=== PATIENT | female | born 1970 | race African-American/Black ===

== ENCOUNTER 2024-02-12 13:44 | Inpatient (IN) | payer OTHER ==
[2024-02-12 15:17] LABS: BASO % 0.5 % (0-2.0); EOS % 1.3 % (0-4.5); HEMATOCRIT 35.9 % (32.4-45.2); HEMOGLOBIN 11.6 GM/dL (10.7-15.3); MCH 26.6 pg (25.7-33.7); MCHC 32.3 g/dl (32.0-36.0); MEAN CELL VOLUME 82.2 fl (80-96); MEAN PLT VOLUME 8.5 fl (7.5-11.1); MONO % 6.3 % (3.8-10.2); NEUT % 61.9 % (42.8-82.8); PLATELET COUNT 203 10^3/uL (134-434); RBC 4.36 M/mm3 (3.60-5.2); RDW 14.5 % (11.6-15.6)
[2024-02-12 15:22] LABS: INR 1.07 (0.83-1.09); PROTHROMBIN TIME (PATIENT) 12.1 SEC (9.7-13.0)
[2024-02-12 15:24] LABS: ACTIVATED PTT 31.1 SECONDS (25.2-36.5)
[2024-02-12 15:38] LABS: POTASSIUM 4.5 mmol/L (3.5-5.1)
[2024-02-12 15:41] LABS: CALCIUM 9.8 mg/dL (8.5-10.1)
[2024-02-12 15:42] LABS: ALBUMIN 3.6 g/dl (3.4-5.0); BLOOD UREA NITROGEN 13.3 mg/dL (7-18); MAGNESIUM 1.9 mg/dL (1.8-2.4)
[2024-02-12 15:45] LABS: CREATININE 0.5 mg/dL (0.55-1.3)
[2024-02-12 15:46] LABS: BILIRUBIN,TOTAL 0.4 mg/dL (0.2-1); TOT PROT 7.5 g/dl (6.4-8.2)
[2024-02-12] MEDS: hydrALAZINE HCL 50 MG TABLET (FP) PO SCH (17:00)
[2024-02-12] MEDS: MUPIROCIN 2% TOPICAL OINTMENT FOR DECOLONIZATION NS SCH (21:01)
[2024-02-12] MEDS: FERROUS SO4 325 MG TABLET (FP) PO SCH (21:01)
[2024-02-12] MEDS: CHLORHEXIDINE GLUCONATE 4% CLEANSER FOR DECOLONIZATION TP SCH (21:01)
[2024-02-12] MEDS: ATORVASTATIN CA 80 MG TABLET (FP) PO SCH (21:01)
[2024-02-13 07:22] LABS: BASO % 0.6 % (0-2.0); EOS % 1.7 % (0-4.5); HEMATOCRIT 35.6 % (32.4-45.2); HEMOGLOBIN 11.5 GM/dL (10.7-15.3); MCH 26.6 pg (25.7-33.7); MCHC 32.2 g/dl (32.0-36.0); MEAN CELL VOLUME 82.5 fl (80-96); MEAN PLT VOLUME 8.6 fl (7.5-11.1); MONO % 7.4 % (3.8-10.2); NEUT % 47.3 % (42.8-82.8); PLATELET COUNT 197 10^3/uL (134-434); RBC 4.31 M/mm3 (3.60-5.2); RDW 14.9 % (11.6-15.6); WHITE BLOOD COUNT 4.9 K/mm3 (4.0-10.0)
[2024-02-13 07:43] LABS: POTASSIUM 4.1 mmol/L (3.5-5.1)
[2024-02-13 07:51] LABS: ALBUMIN 3.3 g/dl (3.4-5.0); BLOOD UREA NITROGEN 12.1 mg/dL (7-18); CALCIUM 9.5 mg/dL (8.5-10.1)
[2024-02-13 07:53] LABS: BILIRUBIN,TOTAL 0.6 mg/dL (0.2-1); TOT PROT 6.9 g/dl (6.4-8.2)
[2024-02-13 07:54] LABS: CREATININE 0.4 mg/dL (0.55-1.3); PHOSPHOROUS 3.9 mg/dL (2.5-4.9)
[2024-02-13] MEDS: DEXTROSE 5%-LACTATED RINGERS 1,000 ML IV SCH (08:55)
[2024-02-13] MEDS: LISINOPRIL 20 MG TABLET PO SCH (09:13)
[2024-02-13 09:31] LABS: INR 1.06 (0.83-1.09)
[2024-02-13 09:35] LABS: ACTIVATED PTT 34.8 SECONDS (25.2-36.5)
[2024-02-13] MEDS ORDERED: ACETAMINOPHEN 325 MG TABLET (FP) ONE (20:01)
[2024-02-13] MEDS: ACETAMINOPHEN 325 MG TABLET (FP) PO PRN (20:09)
[2024-02-14 06:28] LABS: BASO % 0.6 % (0-2.0); EOS % 2.4 % (0-4.5); HEMATOCRIT 36.6 % (32.4-45.2); HEMOGLOBIN 11.6 GM/dL (10.7-15.3); LYMPH % 43.7 % (8-40); MCH 26.6 pg (25.7-33.7); MCHC 31.8 g/dl (32.0-36.0); MEAN CELL VOLUME 83.6 fl (80-96); MEAN PLT VOLUME 8.5 fl (7.5-11.1); MONO % 9.4 % (3.8-10.2); NEUT % 43.9 % (42.8-82.8); PLATELET COUNT 182 10^3/uL (134-434); RBC 4.37 M/mm3 (3.60-5.2); RDW 14.9 % (11.6-15.6); WHITE BLOOD COUNT 4.9 K/mm3 (4.0-10.0)
[2024-02-14 06:43] LABS: INR 0.97 (0.83-1.09); PROTHROMBIN TIME (PATIENT) 11.2 SEC (9.7-13.0)
[2024-02-14 06:46] LABS: ACTIVATED PTT 33.2 SECONDS (25.2-36.5)
[2024-02-14 06:55] LABS: CALCIUM 9.4 mg/dL (8.5-10.1)
[2024-02-14 06:56] LABS: ALBUMIN 3.2 g/dl (3.4-5.0); BLOOD UREA NITROGEN 13.6 mg/dL (7-18)
[2024-02-14 06:59] LABS: CREATININE 0.5 mg/dL (0.55-1.3); PHOSPHOROUS 4.3 mg/dL (2.5-4.9)
[2024-02-14 07:01] LABS: BILIRUBIN,TOTAL 0.3 mg/dL (0.2-1); TOT PROT 6.9 g/dl (6.4-8.2)
[2024-02-15 07:41] LABS: HEMATOCRIT 35.2 % (32.4-45.2); HEMOGLOBIN 11.1 GM/dL (10.7-15.3); MCH 26.4 pg (25.7-33.7); MCHC 31.4 g/dl (32.0-36.0); MEAN CELL VOLUME 84.2 fl (80-96); MEAN PLT VOLUME 8.6 fl (7.5-11.1); PLATELET COUNT 181 10^3/uL (134-434); RBC 4.18 M/mm3 (3.60-5.2); RDW 14.6 % (11.6-15.6); WHITE BLOOD COUNT 4.3 K/mm3 (4.0-10.0)
[2024-02-15 08:08] LABS: ALBUMIN 3.3 g/dl (3.4-5.0); BLOOD UREA NITROGEN 13.1 mg/dL (7-18); CALCIUM 9.5 mg/dL (8.5-10.1); MAGNESIUM 1.8 mg/dL (1.8-2.4)
[2024-02-15 08:11] LABS: CREATININE 0.5 mg/dL (0.55-1.3); PHOSPHOROUS 3.4 mg/dL (2.5-4.9)
[2024-02-15 08:12] LABS: BILIRUBIN,TOTAL 0.3 mg/dL (0.2-1)
[2024-02-15] MEDS: CHLORHEXIDINE GLUCONATE 4% CLEANSER FOR DECOLONIZATION TP SCH (21:42)
[2024-02-16] MEDS: PANTOPRAZOLE 40 MG TABLET PO SCH (06:07)
[2024-02-16] MEDS ORDERED: THROMBIN (BOVINE) 5,000 UNIT VIAL TP ONE (07:14)
[2024-02-16] MEDS ORDERED: PROPOFOL 20 ML ONE (07:15)
[2024-02-16] MEDS ORDERED: BUPIVACAINE HCL/PF 0.5% (5MG/ML) 10 ML VIAL ONE (07:15)
[2024-02-16] MEDS ORDERED: MIDAZOLAM HCL 2 MG/2 ML SINGLE DOSE VIAL ONE (07:15)
[2024-02-16] MEDS ORDERED: ROCURONIUM BROMIDE 50 MG/5 ML SYRINGE ONE ×3 (07:15→11:09)
[2024-02-16] MEDS ORDERED: GENTAMICIN SO4 80 MG/2 ML VIAL ONE (07:17)
[2024-02-16] MEDS ORDERED: LIDOCAINE 1%/EPI 1:100000 (20 ML MULTI DOSE VIAL) ONE (07:25)
[2024-02-16] MEDS ORDERED: BACITRACIN ZINC 15 GM TUBE TOPICAL OINTMENT ONE (07:32)
[2024-02-16 07:44] LABS: BASO % 0.3 % (0-2.0); EOS % 2.6 % (0-4.5); HEMOGLOBIN 10.5 GM/dL (10.7-15.3); LYMPH % 50.5 % (8-40); MCH 26.7 pg (25.7-33.7); MCHC 31.9 g/dl (32.0-36.0); MEAN CELL VOLUME 83.8 fl (80-96); MEAN PLT VOLUME 8.6 fl (7.5-11.1); MONO % 8.5 % (3.8-10.2); NEUT % 38.1 % (42.8-82.8); PLATELET COUNT 174 10^3/uL (134-434); RBC 3.94 M/mm3 (3.60-5.2); RDW 14.5 % (11.6-15.6); WHITE BLOOD COUNT 4.3 K/mm3 (4.0-10.0)
[2024-02-16] MEDS: ceFAZolin SODIUM 1 GM VIAL IVPB ONE ×2 (07:59→09:10)
[2024-02-16] MEDS: VANCOMYCIN 1 GM in NS (PRE-DOCKED) 1,000 MG/250 ML (RESTRICTED TO ID ONLY) IVPB ONE ×2 (07:59→09:20)
[2024-02-16] MEDS: LIDOCAINE 1%/EPI 1:100000 (20 ML MULTI DOSE VIAL) IJ ONE ×2 (07:59→09:29)
[2024-02-16] MEDS ORDERED: ETOMIDATE 20 MG/10 ML VIAL IVPUSH ONE (08:03)
[2024-02-16 08:06] LABS: POTASSIUM 4.3 mmol/L (3.5-5.1)
[2024-02-16 08:14] LABS: ALBUMIN 3.1 g/dl (3.4-5.0); BLOOD UREA NITROGEN 17.2 mg/dL (7-18); CALCIUM 9.3 mg/dL (8.5-10.1)
[2024-02-16 08:17] LABS: CREATININE 0.4 mg/dL (0.55-1.3)
[2024-02-16 08:18] LABS: BILIRUBIN,TOTAL 0.4 mg/dL (0.2-1); TOT PROT 6.4 g/dl (6.4-8.2)
[2024-02-16] MEDS ORDERED: SEVOFLURANE 250 ML BTL ONE (09:48)
[2024-02-16] MEDS: THROMBIN (BOVINE) 5,000 UNIT VIAL TP ONE (10:18)
[2024-02-16] MEDS: GENTAMICIN SO4 80 MG/2 ML VIAL IVPB ONE (10:19)
[2024-02-16] MEDS: HYDROGEN PEROXIDE 473 ML PO ONE (10:20)
[2024-02-16] MEDS ORDERED: FUROSEMIDE 40 MG/4 ML INJECTABLE VIAL ONE ×2 (10:36)
[2024-02-16] MEDS ORDERED: SODIUM CHLORIDE 3% 500 ML/500 ML INFUS.BAG IV ONE (10:47)
[2024-02-16] MEDS: FUROSEMIDE 40 MG/4 ML INJECTABLE VIAL IVPUSH ONE ×2 (10:54)
[2024-02-16] MEDS: MANNITOL 25% 12.5 GM/50 ML VIAL IVPB ONE ×3 (10:54→11:12)
[2024-02-16] MEDS ORDERED: SUGAMMADEX SODIUM 200 MG/2 ML VIAL ONE (12:15)
[2024-02-16] MEDS ORDERED: LIDOCAINE HCL 2% 100 MG/5 ML DISP.SYRIN ONE (12:16)
[2024-02-16] MEDS ORDERED: CODEINE SO4 30 MG TABLET PO PRN (12:19)
[2024-02-16] MEDS ORDERED: ONDANSETRON 4 MG/2 ML VIAL IVPUSH PRN (12:19)
[2024-02-16] MEDS ORDERED: D5-NS + 20 MEQ KCL - 20 MEQ/1,000 ML INFUS.BAG IV SCH (12:30)
[2024-02-16] MEDS: DEXAMETHASONE SOD PHOSPHATE 4 MG/1 ML VIAL IVPUSH SCH (15:44)
[2024-02-16] MEDS: DOCUSATE SODIUM 100 MG CAPSULE (FP) PO SCH (17:02)
[2024-02-16] MEDS: CEFAZOLIN 1 GM in DEXTROSE 5%-WATER - 50 ML IVPB SCH (17:02)
[2024-02-16 17:24] LABS: HEMATOCRIT 31.8 % (32.4-45.2); HEMOGLOBIN 10.2 GM/dL (10.7-15.3); MCH 26.6 pg (25.7-33.7); MCHC 32.1 g/dl (32.0-36.0); MEAN CELL VOLUME 82.8 fl (80-96); MEAN PLT VOLUME 8.8 fl (7.5-11.1); PLATELET COUNT 187 10^3/uL (134-434); RBC 3.84 M/mm3 (3.60-5.2); WHITE BLOOD COUNT 9.2 K/mm3 (4.0-10.0)
[2024-02-16 17:38] LABS: POTASSIUM 4.2 mmol/L (3.5-5.1)
[2024-02-16 17:41] LABS: BLOOD UREA NITROGEN 15.4 mg/dL (7-18)
[2024-02-16 17:45] LABS: CREATININE 0.7 mg/dL (0.55-1.3)
[2024-02-16] MEDS ORDERED: FOSPHENYTOIN SODIUM 100 MG/2 ML VIAL IVPB SCH (18:00)
[2024-02-16] MEDS: SODIUM CHLORIDE IVPB SCH (18:19)
[2024-02-16] MEDS: FOSPHENYTOIN SODIUM IVPB SCH (18:19)
[2024-02-16] MEDS: SODIUM CHLORIDE 3% 500 ML/500 ML INFUS.BAG IV ONE (18:22)
[2024-02-16] MEDS: ACETAMINOPHEN 1000 MG/100 ML BAG IVPB ONE (20:36)
[2024-02-17] MEDS: morphine CARPU-JECT 2 MG/1 ML DISP.SYRIN IVPUSH ONE (03:39)
[2024-02-17 06:53] LABS: HEMATOCRIT 28.4 % (32.4-45.2); MCH 26.5 pg (25.7-33.7); MCHC 31.8 g/dl (32.0-36.0); MEAN CELL VOLUME 83.5 fl (80-96); MEAN PLT VOLUME 8.5 fl (7.5-11.1); PLATELET COUNT 166 10^3/uL (134-434); RDW 14.8 % (11.6-15.6); WHITE BLOOD COUNT 12.4 K/mm3 (4.0-10.0)
[2024-02-17 07:13] LABS: POTASSIUM 3.7 mmol/L (3.5-5.1)
[2024-02-17 07:15] LABS: BLOOD UREA NITROGEN 13.4 mg/dL (7-18); CALCIUM 8.9 mg/dL (8.5-10.1)
[2024-02-17 07:19] LABS: CREATININE 0.4 mg/dL (0.55-1.3)
[2024-02-17] MEDS: PANTOPRAZOLE SODIUM 40 MG VIAL IVPUSH SCH (09:00)
[2024-02-17] MEDS: ACETAMINOPHEN WITH CODEINE 300MG/30MG TABLET PO PRN (21:06)
[2024-02-18 07:53] LABS: POTASSIUM 3.9 mmol/L (3.5-5.1)
[2024-02-18 07:55] LABS: CALCIUM 8.4 mg/dL (8.5-10.1)
[2024-02-18 07:56] LABS: ALBUMIN 2.7 g/dl (3.4-5.0); BLOOD UREA NITROGEN 15.2 mg/dL (7-18); MAGNESIUM 1.8 mg/dL (1.8-2.4)
[2024-02-18 07:58] LABS: CREATININE 0.4 mg/dL (0.55-1.3)
[2024-02-18 07:59] LABS: PHOSPHOROUS 2.1 mg/dL (2.5-4.9)
[2024-02-18 08:00] LABS: BILIRUBIN,TOTAL 0.2 mg/dL (0.2-1); TOT PROT 5.9 g/dl (6.4-8.2)
[2024-02-18 08:20] LABS: BASO % 0.1 % (0-2.0); HEMATOCRIT 25.9 % (32.4-45.2); HEMOGLOBIN 8.4 GM/dL (10.7-15.3); LYMPH % 12.8 % (8-40); MCH 26.7 pg (25.7-33.7); MCHC 32.4 g/dl (32.0-36.0); MEAN CELL VOLUME 82.3 fl (80-96); MEAN PLT VOLUME 9.2 fl (7.5-11.1); MONO % 5.8 % (3.8-10.2); NEUT % 81.3 % (42.8-82.8); PLATELET COUNT 145 10^3/uL (134-434); RBC 3.14 M/mm3 (3.60-5.2); RDW 14.6 % (11.6-15.6); WHITE BLOOD COUNT 10.1 K/mm3 (4.0-10.0)
[2024-02-18] MEDS: NAPH,MB-DB/K PH,MBDB POWDER PACKET PO SCH (10:30)
[2024-02-18 14:27] VITALS: BMI 29.5
[2024-02-19 07:07] LABS: BASO % 0.4 % (0-2.0); HEMATOCRIT 27.6 % (32.4-45.2); HEMOGLOBIN 8.9 GM/dL (10.7-15.3); LYMPH % 18.4 % (8-40); MCH 26.9 pg (25.7-33.7); MCHC 32.3 g/dl (32.0-36.0); MEAN CELL VOLUME 83.3 fl (80-96); MEAN PLT VOLUME 9.4 fl (7.5-11.1); MONO % 5.4 % (3.8-10.2); NEUT % 75.8 % (42.8-82.8); PLATELET COUNT 154 10^3/uL (134-434); RBC 3.31 M/mm3 (3.60-5.2); RDW 14.7 % (11.6-15.6); WHITE BLOOD COUNT 8.7 K/mm3 (4.0-10.0)
[2024-02-19 07:14] LABS: POTASSIUM 4.2 mmol/L (3.5-5.1)
[2024-02-19 07:16] LABS: BLOOD UREA NITROGEN 14.1 mg/dL (7-18)
[2024-02-19 07:17] LABS: ALBUMIN 2.6 g/dl (3.4-5.0); CALCIUM 8.5 mg/dL (8.5-10.1); MAGNESIUM 1.9 mg/dL (1.8-2.4)
[2024-02-19 07:20] LABS: CREATININE 0.4 mg/dL (0.55-1.3); PHOSPHOROUS 1.9 mg/dL (2.5-4.9)
[2024-02-19 07:22] LABS: BILIRUBIN,TOTAL 0.2 mg/dL (0.2-1)
[2024-02-19] MEDS ORDERED: ONDANSETRON 4 MG/2 ML VIAL IVPUSH PRN (15:07)
[2024-02-19] MEDS ORDERED: CODEINE SO4 30 MG TABLET PO PRN (15:07)
[2024-02-19] MEDS ORDERED: ACETAMINOPHEN WITH CODEINE 300MG/30MG TABLET PO PRN (15:07)
[2024-02-19] MEDS ORDERED: ACETAMINOPHEN 325 MG TABLET (FP) PO PRN (15:07)
[2024-02-19] MEDS ORDERED: SODIUM CHLORIDE 3% 500 ML/500 ML INFUS.BAG IV ONE (15:07)
[2024-02-19] MEDS: SODIUM CHLORIDE IVPB SCH (17:58)
[2024-02-19] MEDS: FOSPHENYTOIN SODIUM IVPB SCH (17:58)
[2024-02-19] MEDS: ATORVASTATIN CA 80 MG TABLET (FP) PO SCH (21:23)
[2024-02-19] MEDS: FERROUS SO4 325 MG TABLET (FP) PO SCH (21:23)
[2024-02-19] MEDS: DOCUSATE SODIUM 100 MG CAPSULE (FP) PO SCH (21:24)
[2024-02-20] MEDS: PANTOPRAZOLE SODIUM 40 MG VIAL IVPUSH SCH (11:17)
[2024-02-20] MEDS: LISINOPRIL 20 MG TABLET PO SCH (11:22)
[2024-02-21] MEDS: PANTOPRAZOLE 40 MG TABLET PO SCH (09:01)
[2024-02-21 10:12] LABS: HEMATOCRIT 29.5 % (32.4-45.2); HEMOGLOBIN 9.3 GM/dL (10.7-15.3); MCH 26.5 pg (25.7-33.7); MCHC 31.6 g/dl (32.0-36.0); MEAN CELL VOLUME 83.7 fl (80-96); MEAN PLT VOLUME 9.3 fl (7.5-11.1); PLATELET COUNT 186 10^3/uL (134-434); RBC 3.52 M/mm3 (3.60-5.2); WHITE BLOOD COUNT 7.3 K/mm3 (4.0-10.0)
[2024-02-21 10:36] LABS: POTASSIUM 3.6 mmol/L (3.5-5.1)
[2024-02-21 10:48] LABS: ALBUMIN 2.6 g/dl (3.4-5.0); BLOOD UREA NITROGEN 11.6 mg/dL (7-18); CALCIUM 8.9 mg/dL (8.5-10.1)
[2024-02-21 10:51] LABS: CREATININE 0.4 mg/dL (0.55-1.3)
[2024-02-21 10:52] LABS: PHOSPHOROUS 3.2 mg/dL (2.5-4.9)
[2024-02-21 10:53] LABS: BILIRUBIN,TOTAL 0.3 mg/dL (0.2-1); TOT PROT 5.8 g/dl (6.4-8.2)
[2024-02-22] MEDS ORDERED: ACETAMINOPHEN 500 MG TABLET (FP) PO PRN (11:25)
[2024-02-22] MEDS ORDERED: KETOROLAC TROMETHAMINE 15 MG/ML VIAL IVPUSH PRN (11:26)
[2024-02-22 14:27] VITALS: RESP 18
[2024-02-24 14:16] VITALS: BP 98/72; PULSE 85; TEMP 98.8
== END 2024-02-24 18:05 | DRG 21 ==
LOC: JER 13:44 → JERBED 15:36 → JICU 16:27 → J6S 02-19 12:26
PROVIDERS: ADMIT Internal Medicine; ATTEND Internal Medicine
PROC: 00B10ZZ Excision of Cerebral Meninges, Open Approach (ICD-10-PCS; principal; 2024-02-16 07:30)
DX: D32.0 Benign neoplasm of cerebral meninges (principal); I63.512 Cerebral infarction due to unspecified occlusion or stenosis of left middle cerebral artery; I10 Essential (primary) hypertension; I69.351 Hemiplegia and hemiparesis following cerebral infarction affecting right dominant side; E78.5 Hyperlipidemia, unspecified; I25.10 Atherosclerotic heart disease of native coronary artery without angina pectoris; I25.2 Old myocardial infarction; D50.9 Iron deficiency anemia, unspecified; K59.09 Other constipation
CPT/HCPCS: 0241U-QW; 36415; 70450-TC; 70553-TC; 71045-TC-FY; 80048; 80053; 82962; 83735; 84100; 84484; 84703; 85025; 85027; 85610; 85730; 86850; 86900; 86901; 86922; 93005; 93010; 97162-GP; 99285-25; C1713; C1889